=== PATIENT | female | born 1975 | race Caucasian/White ===

== ENCOUNTER → 2017-12-02 09:20 | Outpatient (CLI) | payer BC, SELFPAY ==
--- NOTE | 2017-12-02 09:28 | XR_ITS ---
XR hand LT min 3V HISTORY: Posttraumatic pain ITS.REASON: LT HAND PAIN, TRIPPED AT HOME ORDERING PHYSICIAN: Chiquita Walker PATIENT AGE: 42 years COMPARISON: None FINDINGS: No fracture or dislocation. No lytic or blastic change. There is normal mineralization.. The joint spaces are well-preserved. No significant degenerative/arthritic changes. No erosive changes evident.. IMPRESSION: Negative, no acute finding
== END ==
PROVIDERS: PCP Family Medicine; Visit Provider Nurse Practitioner Family
DX: M79.642 Pain in left hand (principal)
CPT/HCPCS: 73130

== ENCOUNTER → 2019-12-28 13:42 | Outpatient (CLI) | payer MEDICAID, SELFPAY ==
--- NOTE | 2019-12-28 13:52 | XR_ITS ---
PROCEDURE: XR SACRUM COCCYX MIN 2V CLINICAL INDICATION: Pain following injury COMPARISON: No exams were available for comparison FINDINGS: There is and inverted v-shaped lucency involving the sacrococcygeal junction which could be due to a nondisplaced fracture. Tip of the coccyx is slightly angulated posteriorly. IMPRESSION: Possible nondisplaced fracture of the sacrococcygeal junction. Dictated by: Alexander Thomas MD 12/28/2019 15:00 Alexander Thomas MD in [place] 12/28/2019 15:00
--- NOTE | 2019-12-28 13:52 | XR_ITS ---
PROCEDURE: XR PELVIS 1-2V CLINICAL INDICATION: INJURY OF COCCYX,RT SIDED ISCHIAL PAIN Pain COMPARISON: No exams were available for comparison TECHNIQUE: XR Pelvis AP View FINDINGS: No fracture or dislocation is evident. No significant degenerative change. No lytic or blastic change. IMPRESSION: No acute findings. Dictated by: Alexander Thomas MD 12/28/2019 15:02 Alexander Thomas MD in [place] 12/28/2019 15:02
== END ==
PROVIDERS: PCP Family Medicine; Visit Provider Family Medicine
DX: S39.92XA Unspecified injury of lower back, initial encounter (principal); M46.1 Sacroiliitis, not elsewhere classified; M25.551 Pain in right hip
CPT/HCPCS: 72170; 72220

== ENCOUNTER 2024-07-24 17:03 | Emergency (ER) | payer BC, SELFPAY ==
--- NOTE | 2024-07-24 17:13 | ED_ITS ---
<Statement entered by Jase Lepe MD - 07/24/24 21:52> I was consulted by the YA, and we discussed the complexity of the problems being addressed. I approved the treatment and management plan for this patient's care in the emergency department, thus performing a substantive portion of the medical decision making. Jase Lepe MD, GRAHAM, FACEP Discharge Plan Disposition Patient Disposition: Home, Self-Care Condition: Good Referrals Follow up/Referrals: Provider,Referral, [Primary Care Provider] - See instructions Activity Restrictions/Add. Instructions Additional Instructions/Restrictions: Recommend RICE, rest ice compression elevation along with Tylenol alternating with Motrin for pain and swelling. If you have to sit for prolonged period I recommend elevating your foot. If you have continued new or worsening signs or symptoms follow-up with your PCP or return to the ER as needed. Clinical Impressions Clinical Impression: Hematoma of right foot Print Language Print Language: Serbian Discharge ED Provider: Jase Lepe General Adult HPI General Chief complaint: Extremity Injury, Lower Stated complaint: AO 07/23/24 2000 Injury right foot Time Seen by Provider: 07/24/24 17:13 History of Present Illness HPI narrative: Patient presents for right foot injury. Patient dropped a metal freestanding close rack on the dorsum of her right foot last night. She states that it immediately swelled. Patient treated it with elevation and ice all night and has been able to ambulate on it today however it has become more painful so she presented for evaluation. She denies any loss of motor or sensory numbness or tingling. Related Data Allergies Allergy/AdvReac Type Severity Reaction Status Date / Time No Known Allergies Allergy Verified 07/24/24 17:34 [facility] Disclaimer: The information contained in this section may have been updated after the patient was seen, as this information can be updated by other users. Social History Smoking Status: Former smoker alcohol intake: never current occupational status: employed Travel in the last 8 weeks?: None ROS Obtained: Yes Systems reviewed as appropriate & no additional complaints except as documented Physical Exam General General appearance: alert and in no apparent distress Respiratory Respiratory exam: Present normal lung sounds bilaterally Cardiovascular Cardiovascular exam: Present regular rate Neurological Exam Neurological exam: Present alert and oriented X3 Medical Decision Making Medical Records Medical records reviewed: Yes I reviewed the patient's medical records. Screening: Per USPSTF and CDC recommendations, given the prevalence of disease in our region, it is our hospital?s policy to screen for HIV and viral Hepatitis for all patients aged 18 and over and those with ongoing risk factors. Judah Inquiry Pt receiving controlled substance: No Vital Signs: 07/24/24 17:24 07/24/24 17:31 07/24/24 18:20 Temperature 98.3 F 98.0 F Temperature Source Oral Pulse Rate 104 H 98 H Pulse Rate [Left] 101 H Respiratory Rate 16 19 Blood Pressure 176/104 H 183/109 H Blood Pressure [Right Arm] 191/104 H Blood Pressure Mean [Right Arm] 133 Blood Pressure Source [Right Arm] Automatic Cuff Blood Pressure Position [Right Arm] Sitting 02 Sat by Pulse Oximetry 99 100 Oxygen Delivery Method Room Air Room Air Lab Data Lab results reviewed: Yes I reviewed the patient's lab results. Orders (Tests/Meds): ED MEDICATIONS Discontinued Medications Generic Name Dose Route Start Last Admin Trade Name Freq PRN Reason Stop Dose Admin Acetaminophen 1,000 mg 07/24/24 17:57 07/24/24 18:07 Acetaminophen 500mg Tab PO 07/24/24 17:58 1,000 mg ONCE ONE Administration Ibuprofen 800 mg 07/24/24 17:57 07/24/24 18:07 Ibuprofen 400 Mg Tablet PO 07/24/24 17:58 800 mg ONCE ONE Administration Oxycodone HCl 5 mg 07/24/24 17:57 07/24/24 18:06 Oxycodone 5mg Immediate Release Tablet PO 07/24/24 17:58 5 mg ONCE ONE Administration ORDERS Category Date Time Status Foot XR right minimum 3 views [XR foot RT min 3V] Stat Exams 07/24/24 17:17 Completed Medical Decision Narrative: In summary patient is a 49-year-old female who presents to the emergency department for evaluation of hematoma of her right foot. Patient is hypertensive on arrival with a blood pressure 191/104 tachycardic at 101 sinus tachycardia the bedside monitor breathing 16 times a minute satting at 99% on room air afebrile. Zickel exam is remarkable for ecchymosis to the dorsum of the right foot however I do not palpate any bony abnormalities. Patient does have full range of motion and is neurovascular intact distally she has positive DP and PT pulses. Patient did show me swelling last night and it is markedly b lee but still there is a small area of hematoma on the dorsum of the midfoot.. Differential diagnosis includes hematoma versus fracture. Initial workup will be conducted with plain film x-rays. Initial interventions include Tylenol ibuprofen and oxycodone. Initial workup reviewed by me and my informal to rotation prior to radiology read shows right midfoot soft tissue swelling but no acute bony abnormality. Please see radiology read for formal final interpretation.. Upon repeat evaluation patient reports significant improvement after Tylenol ibuprofen and oxycodone. She is able to bear weight in the ER. Given this patient is appropriate for discharge with recommendations for local and supportive care including RICE along with Tylenol alternating with Motrin. If she has any continued new or worsening signs or symptoms follow-up PCP return to the ER as needed. Critical Care Critical Care Time Critical Care Time: No
--- NOTE | 2024-07-24 17:17 | XR_ITS ---
PROCEDURE INFORMATION: Exam: XR Right Foot Exam date and time: 07/24/2024 5:20 PM Age: 49 years old Clinical indication: Injury or trauma; Other: Object fall on foot; Blunt trauma; Right; Additional info: Dropped a heavy metal close rack on it TECHNIQUE: Imaging protocol: Radiologic exam of the right foot. Views: 3 or more views. COMPARISON: No relevant prior studies available. FINDINGS: Bones/joints: Healed 5th metatarsal fracture. Soft tissues: Mild right midfoot soft tissue swelling without acute osseous abnormality. IMPRESSION: Mild right midfoot soft tissue swelling without acute osseous abnormality.
[2024-07-24 17:24] VITALS: BP 191/104; PULSE 101; RESP 16; TEMP 36.8; O2SAT 99; BMI 22.1
[2024-07-24 17:31] VITALS: BP 176/104; PULSE 104; O2SAT 100
--- NOTE | 2024-07-24 17:57 | PC.NURSE ---
RN aware of elevated BP at this time.
[2024-07-24] MEDS: OXYCODONE 5MG IMMEDIATE RELEASE TABLET 5 MG PO (18:06)
[2024-07-24] MEDS: IBUPROFEN 400 MG TABLET 800 MG PO (18:07)
[2024-07-24] MEDS: ACETAMINOPHEN 500MG TAB 1000 MG PO (18:07)
[2024-07-24 18:20] VITALS: BP 183/109; PULSE 98; RESP 19; TEMP 36.7; O2SAT 98
== END 2024-07-24 18:21 | disposition home or self-care (01) ==
PROVIDERS: Emergency Provider Student in an Organized Health Care Education/Training Program
DX: S90.31XA Contusion of right foot, initial encounter (principal); M79.671 Pain in right foot; W20.8XXA Other cause of strike by thrown, projected or falling object, initial encounter
CPT/HCPCS: 73630; 99283

== ENCOUNTER 2024-08-05 12:13 | Emergency (ER) | payer BC, OTHER, SELFPAY ==
[2024-08-05] VITALS (18 sets, daily range): BP systolic 149–190; BP diastolic 100–124; PULSE 92–126; RESP 7–17; TEMP 36.9; O2SAT 97–100; BMI 219.6
--- NOTE | 2024-08-05 12:03 | ECG_ITS ---
APPROVED REPORT Exam: Resting ECG HR:117 bpm ECG Measurements Heart Rate 117 AXES [place] 158 P 68 QRSd 90 QRS 87 QT 339 T 47 QTc 409 Conclusion SINUS TACHYCARDIA NONSPECIFIC T-WAVE ABNORMALITY ABNORMAL RHYTHM ECG UNCONFIRMED REPORT Electronically signed by : Art Morfin, 08/05/2024 16:19:58
--- NOTE | 2024-08-05 12:04 | CT_ITS ---
FINAL REPORT TECHNIQUE: Axial CT images were performed through the head. Coronal reformatted images were submitted. This study was performed with techniques to keep radiation doses as low as reasonably achievable (ALARA). Individualized dose reduction techniques using automated exposure control or adjustment of mA and/or kV according to the patient's size were employed. CLINICAL HISTORY: seizure FINDINGS: The ventricles are normal in size. There is no evidence of hemorrhage. There is no mass or edema identified. There is no abnormal extra-axial fluid seen. The sinuses are well aerated. The mastoid air cells are well aerated. IMPRESSION: No acute intracranial process. Reviewed, Interpreted and Dictated by Anoop Mckenna MD Transcribed by Ryann Ndiaye Authenticated and [facility]
[2024-08-05 12:08] LABS: VBG Base Excess -13.5 mmol/L (-2.4-2.3); VBG HCO3 13.3 mmol/L (23-30); VBG Oxygen Saturation 98.4 % (50-70); VBG PCO2 29.3 mmol/L (35-51); VBG PH 7.28 mmol/L (7.31-7.41); VBG PO2 129.5 mmol/L (28-40); VBG Total CO2 14.2 mmol/L (23-27)
[2024-08-05 12:11] LABS: Lactate Venous 12.1 mmol/L (0.4-2.0)
--- NOTE | 2024-08-05 12:12 | PC.NURSE ---
Dr Morfin notified of critical vbg/lactic
[2024-08-05 12:13] LABS: Basophils % 0.5 % (0.1-2.0); Eosinophils % 0.2 % (0.1-12.0); Hematocrit 45.1 % (37.0-47.0); Hemoglobin 14.6 g/dL (12.2-16.2); Immature Granulocytes # 0.02 10^3uL; Immature Granulocytes % 0.3 %; Lymphocytes # 2.7 K/mm3 (0.7-4.5); Lymphocytes % 40.9 % (10-50); Mean Corpuscular HGB Conc 32.4 g/dL (31.8-35.4); Mean Corpuscular Volume 104.9 fl (81-99); Mean Platelet Volume 11.2 fl (7.4-10.4); Monocytes # 0.4 K/mm3 (0.1-1.0); Neutrophils # 3.4 K/mm3 (1.8-7.8); Neutrophils % 52.1 % (37.0-80.0); Nucleated Red Blood Cells # 0 10^3/uL; Nucleated Red Blood Cells % 0 %; Platelet Count 218 K/mm3 (142-424); Red Cell Distribution Width 12.1 % (11.5-17.5); White Blood Count 6.5 K/mm3 (4.8-10.8)
[2024-08-05 12:17] LABS: Chloride 99 mmol/L (98-107); Sodium 138 mmol/L (136-145)
--- NOTE | 2024-08-05 12:17 | ED_ITS ---
<Statement entered by Art Morfin MD - 08/28/24 11:22> YA Attestation I was consulted by the YA, and we discussed the complexity of problems being addressed. I approved the treatment and management plan for this patient's care in the emergency department, thus performing a substantial portion of the medical decision making. Art Morfin MD Discharge Plan Disposition Patient Disposition: Xfer Short-Term Hosp Condition: Good Prescriptions Prescriptions: No Action diazepam 5 mg tablet 5 mg PO DAILY escitalopram oxalate 10 mg tablet 10 mg PO DAILY Patient Comments: TAKE 1 TABLET BY MOUTH DAILY vitamin B complex Tablet 1 tab PO DAILY [id number] acid-biotin 200-300 mcg tablet,chewable 2 tab PO DAILY metoprolol succinate 50 mg tablet extended release 24 hr 50 mg PO DAILY Qty: 30 2RF amoxicillin 875 mg tablet 875 mg PO BID 10 Days Qty: 20 0RF Referrals Follow up/Referrals: Provider,Referral, [Primary Care Provider] - See instructions Clinical Impressions Clinical Impression: Seizure Stand Alone Forms Stand Alone Forms: Transfer Record - ED Instructions Patient Instructions: DI for Seizure Disorder -- Adult Print Language Print Language: [place] Discharge ED Provider: Art Morfin General Adult HPI <Danielatr Payanlizzeth ([facility]), SKILLED LABOR - Last Filed: 08/05/24 18:40> General Chief complaint: Seizure Stated complaint: seizure Time Seen by Provider: 08/05/24 12:14 Mode of Arrival: EMS Source of Information: Patient and EMS Description of Symptoms (Recalled from ER Triage Doc. by RN): ems states they were called out for a witnessed seizure. coworkers state patient was sitting in chair working when she became stiff, they lowered her to floor she reports biting tongue, they report this lasted for 5 mins. on ems arrival she was postlyctial and confused reports feeling swimmy headed and headache History of Present Illness HPI narrative: 49-year-old female presents EMS status post witnessed seizure. Patient states she was at work was feeling fine woke up to EMS. Per bystanders patient was sitting and she suddenly stiffened and started to seize that lasted about 5 minutes. Patient reports no history of seizures. Patient states now she is having a headache and feeling swimmy headed. With talking with patient she admits to drinking vodka and lemonade 3 to 4 glasses daily and taking a shot of vodka before going to work. Patient states she has noticed over the last 4 days her blood pressure has been elevated. Related Data Home Medications ?Medication ?Instructions ?Recorded ?Confirmed diazepam 5 mg tablet 5 mg PO DAILY 08/18/2408/18 escitalopram oxalate 10 mg tablet 10 mg PO DAILY 08/1808/18/24 multivit with minerals-folic acid 2 tab PO DAILY 08/1808/18/24 200 mcg-biotin 300 mcg chew tablet vitamin B complex 1 tab PO DAILY 08/18/2407/24 Previous Rx's ?Medication ?Instructions ?Recorded amoxicillin 875 mg tablet 875 mg PO BID 10 days #20 ta bs 08/18/24 metoprolol succinate 50 mg 50 mg PO DAILY #30 tabs tablet,extended release 24 hr Allergies Allergy/AdvReac Type Severity Reaction Status Date / Time No Known Allergies Allergy Verified 08/18/24 08:41 PFS <Kunal Dudley ([facility]), SKILLED LABOR - Last Filed: 08/05/24 18:40> [facility] Disclaimer: The information contained in this section may have been updated after the patient was seen, as this information can be updated by other users. Medical History (Updated 08/18/24 @ 13:04 by Julia Braswell APRN) Depression Surgical History (Updated 08/18/24 @ 08:46 by Simin Najera CMA) History of tonsillectomy H/O total hysterectomy Family History (Updated 08/18/24 @ 08:47 by Simin Najera CMA) Family/Other Diabetes Mother Thyroid disorder Hypertension Rheumatoid arthritis Social History (Updated 08/18/24 @ 08:48 by Smiin Najera CMA) Smoking Status: Light tobacco smoker tobacco type: cigarettes alcohol intake: former year quit: 2024 substance use type: denies use current occupational status: employed Travel in the last 8 weeks?: None Have you lived/traveled outside US in past 30 days?: No Contact w/someone who lives/traveled outside US past 30 days?: No Exposure to someone with infectious disease in past 14 days?: No Do you have a fever (greater than 100.4 F or 38 C)?: No Have you tested positive for COVID-19?: No Exposed to someone with COVID-19 in past 14 days?: No Do you have a sore throat?: No Do you have a cough?: No Do you have any weakness?: No Do you have any diarrhea?: No Are you experiencing any unusual bleeding?: No Do you have any muscle aches/pain?: No Do you have any abdominal pain?: No Are you experiencing loss of taste or smell?: No <Kunal Dudley ([facility]), SKILLED LABOR - Last Filed: 08/05/24 18:40> ROS Obtained: Yes Systems reviewed as appropriate & no additional complaints except as documented Physical Exam <Kunal Dudley ([facility]), SKILLED LABOR - Last Filed: 08/05/24 18:40> General General appearance: alert and in no apparent distress Head Head exam: atraumatic, normocephalic and normal inspection Eye Eye exam: Present normal appearance and PERRL ENT ENT exam: Present normal exam, normal oropharynx, mucous membranes moist, TM's normal bilaterally and normal external ear exam Neck Neck exam: Present normal inspection, full ROM and trachea midline; Absent meningismus or lymphadenopathy Chest Chest inspection: Present normal inspection and symmetric chest wall rise; Absent tenderness Respiratory Respiratory exam: Present normal lung sounds bilaterally; Absent respiratory distress Cardiovascular Cardiovascular exam: Present regular rate and normal rhythm; Absent JVD Abdominal Exam Abdominal exam: Present soft and normal bowel sounds; Absent distention, tenderness or guarding Extremities Exam Extremities exam: Present normal inspection, full ROM and normal capillary refill; Absent calf tenderness Back Exam Back exam: Present normal inspection; Absent tenderness Neurological Exam Neurological exam: Present alert and oriented X3 Psychiatric Psychiatric exam: Present normal affect and normal mood Skin Skin exam: Present warm, dry, intact and normal color Lymphatic Lymphatic Findings: no adenopathy Medical Decision Making <Kunal Dudley ([facility]), SKILLED LABOR - Last Filed: 08/05/24 18:40> Medical Records Medical records reviewed: Yes I reviewed the patient's medical records. Screening: Per USPSTF and CDC recommendations, given the prevalence of disease in our region, it is our hospital?s policy to screen for HIV and viral Hepatitis for all patients aged 18 and over and those with ongoing risk factors. Judah Inquiry Pt receiving controlled substance: No Vital Signs: 08/05/24 12:05 08/05/24 12:30 08/05/24 13:30 Temperature 98.5 F Temperature Source Oral Pulse Rate 105 H Pulse Rate [Right Radial] 124 H Respiratory Rate 16 11 L 15 Blood Pressure 172/106 H 181/117 H Blood Pressure [Right Arm] 174/110 H Blood Pressure Mean [Right Arm] 131 Blood Pressure Source Blood Pressure Source [Right Arm] Automatic Cuff Blood Pressure Position Blood Pressure Position [Right Arm] Supine 02 Sat by Pulse Oximetry 98 98 99 Oxygen Delivery Method Room Air Room Air 08/05/24 13:32 08/05/24 14:10 08/05/24 14:30 Temperature Temperature Source Pulse Rate 104 H Pulse Rate [Right Radial] Respiratory Rate 15 13 13 Blood Pressure 167/100 H 169/111 H 160/108 H Blood Pressure [Right Arm] Blood Pressure Mean [Right Arm] Blood Pressure Source Blood Pressure Source [Right Arm] Blood Pressure Position Blood Pressure Position [Right Arm] 02 Sat by Pulse Oximetry 99 98 97 Oxygen Delivery Method Room Air Room Air Room Air 08/05/24 15:00 08/05/24 15:22 08/05/24 15:30 Temperature Temperature Source Pulse Rate 124 H 126 H 116 H Pulse Rate [Right Radial] Respiratory Rate 13 14 7 L Blood Pressure 190/120 H 168/122 H 155/112 H Blood Pressure [Right Arm] Blood Pressure Mean [Right Arm] Blood Pressure Source Blood Pressure Source [Right Arm] Blood Pressure Position Blood Pressure Position [Right Arm] 02 Sat by Pulse Oximetry 99 100 98 Oxygen Delivery Method Room Air Room Air Room Air 08/05/24 16:00 08/05/24 16:30 08/05/24 17:00 Temperature Temperature Source Pulse Rate 114 H 104 H 100 H Pulse Rate [Right Radial] Respiratory Rate 11 L 14 15 Blood Pressure 178/124 H 168/117 H 159/116 H Blood Pressure [Right Arm] Blood Pressure Mean [Right Arm] Blood Pressure Source Blood Pressure Source [Right Arm] Blood Pressure Position Blood Pressure Position [Right Arm] 02 Sat by Pulse Oximetry 97 98 99 Oxygen Delivery Method Room Air Room Air Room Air 08/05/24 17:15 08/05/24 18:00 08/05/24 18:30 Temperature Temperature Source Pulse Rate 102 H 108 H 92 H Pulse Rate [Right Radial] Respiratory Rate 14 12 17 Blood Pressure 149/119 H 152/114 H 176/119 H Blood Pressure [Right Arm] Blood Pressure Mean [Right Arm] Blood Pressure Source Blood Pressure Source [Right Arm] Blood Pressure Position Blood Pressure Position [Right Arm] 02 Sat by Pulse Oximetry 99 99 98 Oxygen Delivery Method Room Air Room Air Room Air 08/05/24 19:00 08/05/24 19:22 08/05/24 19:30 Temperature 98.5 F Temperature Source Oral Pulse Rate 103 H 106 H Pulse Rate [Right Radial] Respiratory Rate 9 L 15 10 L Blood Pressure 163/116 H 163/116 H 172/120 H Blood Pressure [Right Arm] Blood Pressure Mean [Right Arm] Blood Pressure Source Automatic Cuff Blood Pressure Source [Right Arm] Blood Pressure Position Supine Blood Pressure Position [Right Arm] 02 Sat by Pulse Oximetry 99 Oxygen Delivery Method Room Air Lab Data Lab results reviewed: Yes I reviewed the patient's lab results. Lab Results 08/05/24 11:50: WBC 6.5, RBC 4.30, Hgb 14.6, Hct 45.1, MCV 104.9 H, MCH 34.0 H, MCHC 32.4, RDW 12.1, Plt Count 218, MPV 11.2 H, Neut % (Auto) 52.1, Lymph % (Auto) 40.9, [place] % (Auto) 6.0, Eos % (Auto) 0.2, Baso % (Auto) 0.5, Neut # (Auto) 3.4, Lymph # (Auto) 2.7, [place] # (Auto) 0.4, Eos # (Auto) 0.0, Baso # (Auto) 0.0, PT 9.8 L, INR 0.86 L, APTT 24.5, Sodium 138, Potassium 3.0 L, Chloride 99, Carbon Dioxide 10 L, Anion Gap 32.0 H, BUN 5 L, Creatinine 0.70, Estimated Creat Clear 77, Estimated GFR 89, Est GFR ( Amer) 108, Glucose 130 H, Hemoglobin A1c 5.1, Calcium 9.7, Phosphorus 4.0, Magnesium 2.3, Total Bilirubin 1.0, AST 356 H*, ALT 121 H, Alkaline Phosphatase 109, Troponin I < 0.01, Total Protein 8.7 H, Albumin > 6.0 H, Globulin 2.7, Albumin/Globulin Ratio 2.2 H, TSH 0.52, Plasma/Serum Alcohol 32 H, HCV Ab ELIU w/Rflx PCR Qn Negative, HIV Ag/Ab Combo Qual Negative 08/05/24 12:10: VBG pH 7.28 L, VBG pCO2 29.3 L, VBG pO2 129.5 H, VBG HCO3 13.3 L , VBG Total CO2 14.2 L, VBG O2 Saturation 98.4 H, VBG Base Excess -13.5 L, VBG Lactic Acid 12.1 H 08/05/24 12:22: Urine Opiates Screen Positive H, Urine Methadone Screen Negative, Ur Barbituates Screen Negative, Ur Phencyclidine Scrn Negative, Ur Amphetamines Screen Negative, U Benzodiazepines Scrn Negative, Urine Cocaine Screen Negative, U Marijuana (THC) Screen Negative 08/05/24 15:07: Troponin I < 0.01 08/05/24 17:55: Lactate 0.6 L 08/05/24 11:50 08/05/24 11:50 Orders (Tests/Meds): ED MEDICATIONS Discontinued Medications Generic Name Dose Route Start Last Admin Trade Name Freq PRN Reason Stop Dose Admin Acetaminophen 1,000 mg 08/05/24 19:27 08/05/24 19:51 Acetaminophen 1,000mg/100ml Vial IV 08/05/24 19:28 1,000 mg ONCE ONE Administration Diazepam 10 mg 08/05/24 16:39 Diazepam 10mg/2ml Syringe IV 09/04/24 16:38 Q1HP PRN CIWA >16 Diazepam 5 mg 08/05/24 16:39 08/05/24 16:55 Diazepam 5mg Tablet PO 09/04/24 16:38 5 mg Q1HP PRN Administration CIWA Score 8-15 Diazepam 5 mg 08/05/24 16:39 Diazepam 5mg Tablet PO 09/04/24 16:38 Q6HP PRN CIWA 2-7 Potassium Chloride/Water 100 mls @ 50 mls/hr 08/05/24 12:43 08/05/24 13:21 Potassium Chloride 20meq/100ml Ivpb IV 08/05/24 14:42 50 mls/hr ONCE ONE Administration Sodium Chloride 1,000 mls @ 999 mls/hr 08/05/24 13:33 08/05/24 13:34 Sod Chlor 0.9% 1000ml Bag IV 08/05/24 14:33 999 mls/hr .Q1H1M ONE Administration Sodium Chloride 1,000 mls @ 999 mls/hr 08/05/24 15:54 08/05/24 16:00 Sod Chlor 0.9% 1000ml Bag IV 08/05/24 16:54 999 mls/hr .Q1H1M ONE Administration Iopamidol 70 ml 08/05/24 13:20 08/05/24 13:21 Iopamidol-370 (76%);100ml Bottle IV 08/05/24 13:21 70 ml ONCE ONE Administration Ketorolac Tromethamine 15 mg 08/05/24 19:27 08/05/24 19:51 Ketorolac 30mg/Ml Vial IV 08/05/24 19:28 15 mg ONCE ONE Administration Potassium Chloride 40 meq 08/05/24 12:38 08/05/24 13:20 Potassium Chloride 20meq Tab PO 08/05/24 12:39 40 meq ONCE ONE Administration Sodium Chloride 50 ml 08/05/24 13:20 08/05/24 13:21 0.9 % Sodium Chloride 50 Ml Vial IV 08/05/24 13:21 50 ml ONCE ONE Administration Sodium Chloride 10 ml 08/05/24 13:20 08/05/24 13:21 Sodium Chloride 0.9% 10ml Syr (Rad Only) IV 09/04/24 13:19 10 ml NEEDED PRN Administration Maintain IV Site ORDERS Category Date Time Status CT angio chest PE protocol Stat Cat Scan 08/05/24 12:[address] head/brain wo con Stat Cat Scan 08/05/24 12:04 Completed Consult Code Inspector [CONS] Routine Cons 08/05/24 15:06 Active Activated Partial Thrombo Time Routine Lab 08/05/24 11:50 Completed Blood alcohol [Ethyl Alcohol] Stat Lab 08/05/24 11:50 Completed CBC w/Auto Diff [Complete Blood Count Auto Diff] Stat Lab 08/05/24 11:50 Completed CMP [Comprehensive Metabolic Panel] Stat Lab 08/05/24 11:50 Completed HIV Combo Stat Lab 08/05/24 11:50 Completed Hemoglobin A1C Stat Lab 08/05/24 11:50 Completed Hepatitis C Ab Qual. W/ RFX Stat Lab 08/05/24 11:50 Completed Lactic Acid Follow Up (RFLX 1) Stat Lab 08/05/24 17:55 Completed Magnesium Stat Lab 08/05/24 11:50 Completed Phosphorous Stat Lab 08/05/24 11:50 Completed Prothrombin Time INR Routine Lab 08/05/24 11:50 Completed TSH [Thyroid Stimulating Hormone] Stat Lab 08/05/24 11:50 Completed Trop I [Troponin I] Stat Lab 08/05/24 11:50 Completed Troponin I Q3H Lab 08/05/24 15:07 Completed UDS [Drug Screen,Urine] Stat Lab 08/05/24 12:22 Completed VBG [Venous Blood Gas] Stat RT 08/05/24 12:10 Completed Medical Decision Narrative: In summary patient is a 49-year-old female who presents to the emergency department for evaluation of status post seizure. Patient is hemodynamically stable upon arrival, afebrile. Unremarkable physical exam. Differential diagnosis includes alcohol withdrawal, epilepsy, hypertension, PE, intracranial abnormality. Initial workup will be conducted with labs, CT head and chest, urine. Initial inventions include IV fluids. Initial workup reviewed by me CT head and chest negative, alcohol level 32, pH 7.28 lactic acid 12, repeat lactic acid 0.8 potassium 20meq of IV potassium given 40 p.o, CIWA protocol initiated, seizure protocol. Upon repeat evaluation patient resting comfortably in bed CIWA of 7. Given this patient is excepted to [facility] will transfer. Spoke with Dr. Lowery at 1600-discussed patient he would prefer patient be transferred to a facility that had neuro [address] Bennett at [facility] report given-she stated patient needed to go to the ICU and I would have to speak to the ICU attending [address] cronin report given she stated that patient needed to go to medicine and ICU and she will speak with Dr. Bennett and they will call us back. [address] Bennett accepted patient wants second lactic acid results. <Eli Stauffer, DO - Last Filed: 08/05/24 21:30> Vital Signs: 08/05/24 12:05 08/05/24 12:30 08/05/24 13:30 Temperature 98.5 F Temperature Source Oral Pulse Rate 105 H Pulse Rate [Right Radial] 124 H Respiratory Rate 16 11 L 15 Blood Pressure 172/106 H 181/117 H Blood Pressure [Right Arm] 174/110 H Blood Pressure Mean [Right Arm] 131 Blood Pressure Source Blood Pressure Source [Right Arm] Automatic Cuff Blood Pressure Position Blood Pressure Position [Right Arm] Supine 02 Sat by Pulse Oximetry 98 98 99 Oxygen Delivery Method Room Air Room Air 08/05/24 13:32 08/05/24 14:10 08/05/24 14:30 Temperature Temperature Source Pulse Rate 104 H Pulse Rate [Right Radial] Respiratory Rate 15 13 13 Blood Pressure 167/100 H 169/111 H 160/108 H Blood Pressure [Right Arm] Blood Pressure Mean [Right Arm] Blood Pressure Source Blood Pressure Source [Right Arm] Blood Pressure Position Blood Pressure Position [Right Arm] 02 Sat by Pulse Oximetry 99 98 97 Oxygen Delivery Method Room Air Room Air Room Air 08/05/24 15:00 08/05/24 15:22 08/05/24 15:30 Temperature Temperature Source Pulse Rate 124 H 126 H 116 H Pulse Rate [Right Radial] Respiratory Rate 13 14 7 L Blood Pressure 190/120 H 168/122 H 155/112 H Blood Pressure [Right Arm] Blood Pressure Mean [Right Arm] Blood Pressure Source Blood Pressure Source [Right Arm] Blood Pressure Position Blood Pressure Position [Right Arm] 02 Sat by Pulse Oximetry 99 100 98 Oxygen Delivery Method Room Air Room Air Room Air 08/05/24 16:00 08/05/24 16:30 08/05/24 17:00 Temperature Temperature Source Pulse Rate 114 H 104 H 100 H Pulse Rate [Right Radial] Respiratory Rate 11 L 14 15 Blood Pressure 178/124 H 168/117 H 159/116 H Blood Pressure [Right Arm] Blood Pressure Mean [Right Arm] Blood Pressure Source Blood Pressure Source [Right Arm] Blood Pressure Position Blood Pressure Position [Right Arm] 02 Sat by Pulse Oximetry 97 98 99 Oxygen Delivery Method Room Air Room Air Room Air 08/05/24 17:15 08/05/24 18:00 08/05/24 18:30 Temperature Temperature Source Pulse Rate 102 H 108 H 92 H Pulse Rate [Right Radial] Respiratory Rate 14 12 17 Blood Pressure 149/119 H 152/114 H 176/119 H Blood Pressure [Right Arm] Blood Pressure Mean [Right Arm] Blood Pressure Source Blood Pressure Source [Right Arm] Blood Pressure Position Blood Pressure Position [Right Arm] 02 Sat by Pulse Oximetry 99 99 98 Oxygen Delivery Method Room Air Room Air Room Air 08/05/24 19:00 08/05/24 19:22 08/05/24 19:30 Temperature 98.5 F Temperature Source Oral Pulse Rate 103 H 106 H Pulse Rate [Right Radial] Respiratory Rate 9 L 15 10 L Blood Pressure 163/116 H 163/116 H 172/120 H Blood Pressure [Right Arm] Blood Pressure Mean [Right Arm] Blood Pressure Source Automatic Cuff Blood Pressure Source [Right Arm] Blood Pressure Position Supine Blood Pressure Position [Right Arm] 02 Sat by Pulse Oximetry 99 Oxygen Delivery Method Room Air Lab Data Lab Results 08/05/24 11:50: WBC 6.5, RBC 4.30, Hgb 14.6, Hct 45.1, MCV 104.9 H, MCH 34.0 H, MCHC 32.4, RDW 12.1, Plt Count 218, MPV 11.2 H, Neut % (Auto) 52.1, Lymph % (Auto) 40.9, [place] % (Auto) 6.0, Eos % (Auto) 0.2, Baso % (Auto) 0.5, Neut # (Auto) 3.4, Lymph # (Auto) 2.7, [place] # (Auto) 0.4, Eos # (Auto) 0.0, Baso # (Auto) 0.0, PT 9.8 L, INR 0.86 L, APTT 24.5, Sodium 138, Potassium 3.0 L, Chloride 99, Carbon Dioxide 10 L, Anion Gap 32.0 H, BUN 5 L, Creatinine 0.70, Estimated Creat Clear 77, Estimated GFR 89, Est GFR ( Amer) 108, Glucose 130 H, Hemoglobin A1c 5.1, Calcium 9.7, Phosphorus 4.0, Magnesium 2.3, Total Bilirubin 1.0, AST 356 H*, ALT 121 H, Alkaline Phosphatase 109, Troponin I < 0.01, Total Protein 8.7 H, Albumin > 6.0 H, Globulin 2.7, Albumin/Globulin Ratio 2.2 H, TSH 0.52, Plasma/Serum Alcohol 32 H, HCV Ab ELIU w/Rflx PCR Qn Negative, HIV Ag/Ab Combo Qual Negative 08/05/24 12:10: VBG pH 7.28 L, VBG pCO2 29.3 L, VBG pO2 129.5 H, VBG HCO3 13.3 L , VBG Total CO2 14.2 L, VBG O2 Saturation 98.4 H, VBG Base Excess -13.5 L, VBG Lactic Acid 12.1 H 08/05/24 12:22: Urine Opiates Screen Positive H, Urine Methadone Screen Negative, Ur Barbituates Screen Negative, Ur Phencyclidine Scrn Negative, Ur Amphetamines Screen Negative, U Benzodiazepines Scrn Negative, Urine Cocaine Screen Negative, U Marijuana (THC) Screen Negative 08/05/24 15:07: Troponin I < 0.01 08/05/24 17:55: Lactate 0.6 L Orders (Tests/Meds): ED MEDICATIONS Discontinued Medications Generic Name Dose Route Start Last Admin Trade Name Freq PRN Reason Stop Dose Admin Acetaminophen 1,000 mg 08/05/24 19:27 08/05/24 19:51 Acetaminophen 1,000mg/100ml Vial IV 08/05/24 19:28 1,000 mg ONCE ONE Administration Diazepam 10 mg 08/05/24 16:39 Diazepam 10mg/2ml Syringe IV 09/04/24 16:38 Q1HP PRN CIWA >16 Diazepam 5 mg 08/05/24 16:39 08/05/24 16:55 Diazepam 5mg Tablet PO 09/04/24 16:38 5 mg Q1HP PRN Administration CIWA Score 8-15 Diazepam 5 mg 08/05/24 16:39 Diazepam 5mg Tablet PO 09/04/24 16:38 Q6HP PRN CIWA 2-7 Potassium Chloride/Water 100 mls @ 50 mls/hr 08/05/24 12:43 08/05/24 13:21 Potassium Chloride 20meq/100ml Ivpb IV 08/05/24 14:42 50 mls/hr ONCE ONE Administration Sodium Chloride 1,000 mls @ 999 mls/hr 08/05/24 13:33 08/05/24 13:34 Sod Chlor 0.9% 1000ml Bag IV 08/05/24 14:33 999 mls/hr .Q1H1M ONE Administration Sodium Chloride 1,000 mls @ 999 mls/hr 08/05/24 15:54 08/05/24 16:00 Sod Chlor 0.9% 1000ml Bag IV 08/05/24 16:54 999 mls/hr .Q1H1M ONE Administration Iopamidol 70 ml 08/05/24 13:20 08/05/24 13:21 Iopamidol-370 (76%);100ml Bottle IV 08/05/24 13:21 70 ml ONCE ONE Administration Ketorolac Tromethamine 15 mg 08/05/24 19:27 08/05/24 19:51 Ketorolac 30mg/Ml Vial IV 08/05/24 19:28 15 mg ONCE ONE Administration Potassium Chloride 40 meq 08/05/24 12:38 08/05/24 13:20 Potassium Chloride 20meq Tab PO 08/05/24 12:39 40 meq ONCE ONE Administration Sodium Chloride 50 ml 08/05/24 13:20 08/05/24 13:21 0.9 % Sodium Chloride 50 Ml Vial IV 08/05/24 13:21 50 ml ONCE ONE Administration Sodium Chloride 10 ml 08/05/24 13:20 08/05/24 13:21 Sodium Chloride 0.9% 10ml Syr (Rad Only) IV 09/04/24 13:19 10 ml NEEDED PRN Administration Maintain IV Site ORDERS Category Date Time Status CT angio chest PE protocol Stat Cat Scan 08/05/24 12:[address] head/brain wo con Stat Cat Scan 08/05/24 12:04 Completed Consult Code Inspector [CONS] Routine Cons 08/05/24 15:06 Active Activated Partial Thrombo Time Routine Lab 08/05/24 11:50 Completed Blood alcohol [Ethyl Alcohol] Stat Lab 08/05/24 11:50 Completed CBC w/Auto Diff [Complete Blood Count Auto Diff] Stat Lab 08/05/24 11:50 Completed CMP [Comprehensive Metabolic Panel] Stat Lab 08/05/24 11:50 Completed HIV Combo Stat Lab 08/05/24 11:50 Completed Hemoglobin A1C Stat Lab 08/05/24 11:50 Completed Hepatitis C Ab Qual. W/ RFX Stat Lab 08/05/24 11:50 Completed Lactic Acid Follow Up (RFLX 1) Stat Lab 08/05/24 17:55 Completed Magnesium Stat Lab 08/05/24 11:50 Completed Phosphorous Stat Lab 08/05/24 11:50 Completed Prothrombin Time INR Routine Lab 08/05/24 11:50 Completed TSH [Thyroid Stimulating Hormone] Stat Lab 08/05/24 11:50 Completed Trop I [Troponin I] Stat Lab 08/05/24 11:50 Completed Troponin I Q3H Lab 08/05/24 15:07 Completed UDS [Drug Screen,Urine] Stat Lab 08/05/24 12:22 Completed VBG [Venous Blood Gas] Stat RT 08/05/24 12:10 Completed Medical Decision Narrative: In summary patient is a 49-year-old female who presents to the emergency department for evaluation of status post seizure. Patient is hemodynamically stable upon arrival, afebrile. Unremarkable physical exam. Differential diagnosis includes alcohol withdrawal, epilepsy, hypertension, PE, intracranial abnormality. Initial workup will be conducted with labs, CT head and chest, urine. Initial inventions include IV fluids. Initial workup reviewed by me CT head and chest negative, alcohol level 32, pH 7.28 lactic acid 12, repeat lactic acid 0.8 potassium 20meq of IV potassium given 40 p.o, CIWA protocol initiated, seizure protocol. Upon repeat evaluation patient resting comfortably in bed CIWA of 7. Given this patient is excepted to [facility] will transfer. Spoke with Dr. Lowery at 1600-discussed patient he would prefer patient be transferred to a facility that had neuro [address] Bennett at [facility] report given-she stated patient needed to go to the ICU and I would have to speak to the ICU attending [address] cronin report given she stated that patient needed to go to medicine and ICU and she will speak with Dr. Bennett and they will call us back. [address] Bennett accepted patient wants second lactic acid results. DO Eh: I was consulted by the YA, and we discussed the complexity of the problems being addressed. I approved the treatment and management plan for this patient's care in the emergency department, thus performing a substantive portion of the medical decision making. Patient arrives with first-time seizure in the setting of daily alcohol abuse, unclear if this is an alcohol withdrawal seizure versus other cause of seizure. She did have increasing CIWA scores here, though initially very low. CT scans here were reassuring and normal independent interpretation did not demonstrate any large brain bleed or space- occupying lesion, no PE. Please radiology for final interpretation. Labs here demonstrated lactic acidosis which was improving on repeat assessment in the setting of seizure, elevated alcohol level, positive UDS for opiates. Patient hypokalemia. Anion gap elevated in the setting of lactic acidosis. AST greater than ALT consistent with alcoholic hepatitis. Ultimately, patient was accepted to [facility] for transfer for higher level of care with neurology. She remained stable here in the emergency department with no recurrence of seizure activity. EMS transport was arranged, and she was transferred in stable condition. Eli Stauffer DO Critical Care <Kunal Dudley ([facility]), [employer] - Last Filed: 08/05/24 18:40> Critical Care Time Critical Care Time: No <Eli Stauffer DO - Last Filed: 08/05/24 21:30> Critical Care Time Critical Care Time: Yes Attestation: On 08/05/24, the high probability of a clinically significant, sudden or life threatening deterioration of the following system(s) required my full and direct attention, intervention and personal management. The time I documented below is in addition to time spent performing reported procedures but includes the following listed in this critical care notation. Total Time Total Critical Care Time: 55
[2024-08-05 12:20] LABS: Alanine Aminotransferase 121 U/L (12-78); Alkaline Phosphatase 109 U/L (38-126); Aspartate Amino Transferase 356 U/L (14-36); Blood Urea Nitrogen 5 mg/dl (7-17); Creatinine Clearance Estimated 77 mL/min (50-200); Estimated Glomerular Filt Rate 89 ml/min (>60); GFR (African American) 108 ML/MIN (>60)
[2024-08-05 12:21] LABS: Calcium 9.7 mg/dl (8.4-10.2); Glucose 130 mg/dl (74-100); Magnesium 2.3 mg/dl (1.6-2.3); Total Protein,Serum 8.7 g/dl (6.3-8.2)
--- NOTE | 2024-08-05 12:24 | CT_ITS ---
FINAL REPORT TECHNIQUE: The patient was injected with IV contrast. Axial images were obtained through the chest in a PE protocol. 3-D reconstruction images were also performed. Individualized dose reduction techniques using automated exposure control or adjustment of the MA and/or KV according to patient's size were employed. CLINICAL HISTORY: tachy COMPARISON: None FINDINGS: Mediastinal vasculature is adequately opacified. No pulmonary artery filling defects are identified to suggest PE. There is no aortic dissection. There is no axillary adenopathy. There is no mediastinal adenopathy. A calcified left hilar lymph node is noted. The heart size is normal. There is no pericardial or pleural effusion. No suspicious infiltrate or nodule is identified. Limited images of the upper abdomen demonstrate moderate fatty infiltration of the liver. IMPRESSION: No pulmonary embolus or dissection. Reviewed, Interpreted and Dictated by Anoop Mckenna MD Transcribed by Keyona Mejia Authenticated and [facility]
[2024-08-05 12:29] LABS: Albumin Level > 6.0 g/dl (3.5-5.0); Albumin/Globulin Ratio 2.2 (1.1-1.8); Globulin 2.7 g/dL (1.3-3.2)
--- NOTE | 2024-08-05 12:30 | PC.NURSE ---
Cherelle from [facility] called critical on patient: K- 3 CO2-10
[2024-08-05 12:32] LABS: Carbon Dioxide 10 mmol/L (22.0-30.0)
--- NOTE | 2024-08-05 12:33 | PC.NURSE ---
DR Notified of criticals.
[2024-08-05 12:41] LABS: Activated Partial Thrombo Time 24.5 seconds (22.8-30.6); Ethyl Alcohol 32 mg/dl (0-10); INR 0.86 (0.9-1.1); Prothrombin Time 9.8 seconds (10.1-12.5); Troponin I < 0.01 ng/ml (0.00-0.034)
--- NOTE | 2024-08-05 12:43 | PC.NURSE ---
pt requested warm blanket and water. Warm blanket given puneet Carlos asked if pt could have water, she said pt okay to have a couple ice chips. Ice chips given to pt.
[2024-08-05 13:07] LABS: Amphetamine/Metha Screen,Urine Negative ng/ml (<1000); Barbiturates Screen,Urine Negative ng/ml (<200)
[2024-08-05 13:08] LABS: Benzodiazepines Screen,Urine Negative ng/ml (<200)
[2024-08-05 13:09] LABS: Methadone Screen,Urine Negative ng/ml (<300)
[2024-08-05 13:10] LABS: Cannabinoid Screen,Urine Negative ng/ml (<50); Cocaine Screen,Urine Negative ng/ml (<300)
[2024-08-05 13:11] LABS: Opiate Screen,Urine Positive ng/ml (<300)
[2024-08-05 13:12] LABS: Phencyclidine Screen,Urine Negative ng/ml (<25)
[2024-08-05] MEDS: POTASSIUM CHLORIDE 20MEQ TAB 40 MEQ PO (13:20)
[2024-08-05 13:21] LABS: Thyroid Stimulating Hormone 0.52 uIU/mL (0.465-4.68)
[2024-08-05] MEDS: SODIUM CHLORIDE 0.9% 10ML SYR (RAD ONLY) 10 ML IV (13:21)
[2024-08-05] MEDS: 0.9 % SODIUM CHLORIDE 50 ML VIAL IV (13:21)
[2024-08-05] MEDS: IOPAMIDOL-370 (76%);100ML BOTTLE 70 ML IV (13:21)
[2024-08-05] MEDS: KCl 20mEq/100ml 100 ML 50 MEQ IV (13:21)
--- NOTE | 2024-08-05 13:30 | PC.NURSE ---
rounding on patient at this time she reports feeling more anxious, provider notified at this time. no new orders
[2024-08-05] MEDS: 0.9 % SODIUM CHLORIDE 1000ML 1,000 ML 999 ML IV ×2 (13:34→16:00)
[2024-08-05 14:16] LABS: HIV Combo NEGATIVE (Negative)
[2024-08-05 14:23] LABS: Hepatitis C Ab Qual. W/ RFX NEGATIVE (Negative)
--- NOTE | 2024-08-05 14:58 | PC.NURSE ---
Assisted pt to the bathroom to eliminate. Pt is laying back in bed with side rails up, seizure pads, and call light within reach.
--- NOTE | 2024-08-05 15:13 | PC.NURSE ---
patient now states she drinks 3-4 glasses of vodka daily and has for years
--- NOTE | 2024-08-05 15:21 | PC.NURSE ---
calling [facility] at this time.
[2024-08-05 15:46] LABS: Troponin I < 0.01 ng/ml (0.00-0.034)
--- NOTE | 2024-08-05 15:49 | PC.NURSE ---
[facility]
--- NOTE | 2024-08-05 15:51 | PC.NURSE ---
last drink this morning was a shot of vodka stated by patient
[2024-08-05 16:10] LABS: Reflex Lactic Add Lactic Reflex
--- NOTE | 2024-08-05 16:39 | PC.NURSE ---
Assisted patient to bathroom
[2024-08-05 16:45] LABS: Hemoglobin A1C 5.1 % (4.0-6.0)
[2024-08-05] MEDS: diazePAM 5MG TABLET 5 MG PO (16:55)
--- NOTE | 2024-08-05 17:00 | PC.NURSE ---
calling [facility] for update
--- NOTE | 2024-08-05 17:35 | PC.NURSE ---
Tyrell Dudley aprn s/w [facility].
[2024-08-05 18:33] LABS: Lactic Acid Follow Up (RFLX 1) 0.6 mmol/L (0.7-2.1)
--- NOTE | 2024-08-05 18:43 | PC.NURSE ---
Cynthia Munoz is currently on phone with [facility] to update accepting physician about lactic results.
[2024-08-05] MEDS: ACETAMINOPHEN 1,000MG/100ML VIAL 1000 MG IV (19:51)
[2024-08-05] MEDS: KETOROLAC 30MG/ML VIAL 15 MG IV (19:51)
--- NOTE | 2024-08-07 13:59 | PEERSUPPORT ---
Peer Support Note Patient Information Patient Information: DOS: 08/05/2024 ? Reason: ETOH, AUD ? Ps ED Consult ? Building Rapport: Previous Treatment: None ? Support System: Mother ? Current Stressors: -Seizure ;processing thoughts and emotions -Started a new job ? Motivation for Change: Pt admitted she has been dishonest with family, and she did not realize the affects the alcohol was having on her. She is interested in outpatient once she is medically stable. She is open to education on alcohol use disorder, and available treatments. ? Ps shared personal experience emphasizing the process leading up to no longer having control of a chemical and or substance encouraging hope and strength to the process of recovery for overall health. ? Pt receptive to ps, understanding and agreeing for follow up contacts for recovery focused support. ? Potential Barriers: -Lack of connection to recovery -Access to alcohol in home ? Harm Reduction: -Connection to [facility] Peer support -Education on Alcohol Use Disorder -Awareness to treatment available -Awareness to alcohol detox, withdrawal symptoms/timeline -Treatment referrals/Resource Meetings Local ? Recovery Plan in action: -Focus on Detox/withdrawal management medical setting for safety. -Healthy communication with family and friends -Self-Educate on Alcohol Use disorder -Refrain from drinking alcohol -Consider outpatient treatment following detox/stabilization
== END 2024-08-05 20:43 | disposition short-term general hospital (02) ==
PROVIDERS: Nurse Practitioner Family; Emergency Provider Student in an Organized Health Care Education/Training Program
DX: G40.001 Localization-related (focal) (partial) idiopathic epilepsy and epileptic syndromes with seizures of localized onset, not intractable, with status epilepticus (principal)
CPT/HCPCS: 70450; 71275; 80053; 80307; 80320; 82803; 83036; 83605; 83735; 84100; 84443; 84484; 85025; 85610; 85730; 86803; 87389; 93005; 96361; 96365; 96375; 99285; J0131; J1885; J3480; J7030; Q9967

== ENCOUNTER 2024-08-24 07:25 | Outpatient (CLI) | payer BC, OTHER, SELFPAY ==
--- NOTE | 2024-08-24 07:30 | US_ITS ---
FINAL REPORT TECHNIQUE: Sonographic images of the right upper quadrant were obtained. CLINICAL HISTORY: elevated liver enzymes, hx of elevated ETOH COMPARISON: None FINDINGS: PANCREAS: Unremarkable. LIVER: Mild fatty infiltration. No focal hepatic lesion. Portal vein is patent with normal directional flow. No intrahepatic biliary ductal dilatation. GALLBLADDER: No gallstones. No gallbladder wall thickening or pericholecystic fluid. COMMON DUCT: 5 mm. Normal for age. RIGHT KIDNEY: The right kidney measures 9.2 cm. There is no hydronephrosis, mass, or stone. FREE FLUID: None. IMPRESSION: Mild fatty liver Reviewed, Interpreted and Dictated by Felicia Dixon MD Transcribed by Keyona Mejia Authenticated and . [facility]
== END 2024-08-24 23:59 | disposition home or self-care (01) ==
LOC: RAD 07:26
PROVIDERS: PCP Nurse Practitioner Family; Visit Provider Nurse Practitioner Family
DX: K76.0 Fatty (change of) liver, not elsewhere classified (principal); F10.10 Alcohol abuse, uncomplicated
CPT/HCPCS: 76705

== ENCOUNTER 2024-10-19 11:18 | Outpatient (CLI) | payer BC, OTHER, SELFPAY ==
--- OUTSIDE RECORDS SUMMARY | 2024-10-19 11:33 | XMS_ITS | Clinical Summary ---
Author Organization [facility] Address [address] [place] [address] Care Team Providers Care Reconstructive Dentist Name Role Phone Kartik Dodson Primary Care Provider + Allergies No known active allergies Medications escitalopram (Lexapro) 10 MG tablet Take 1 tablet by mouth Daily. 30 tablet 1 08/07/2024 Active EVL-Aetn-MeDbxx- MgHydr-Simeth (First Mouthwash, Magic Mouthwash,) suspension Swish and spit 5 mL Every 6 (Six) Hours. 08/07/2024 Active Active Problems Problem Noted Date Diagnosed Date Anxiety 01/11/2016 Well female exam with routine gynecological exam 01/10/2016 Endometriosis 01/10/2016 Insomnia Overview (09/15/2015): sometime Resolved Problems Problem Noted Date Diagnosed Date Resolved Date Alcohol withdrawal 08/05/2024 Encounters Date Type Department Care Team Description 08/05/2024 10:00 PM EDT - 08/07/2024 11:27 AM EDT Hospital Encounter [facility] [address] [address] [place] [address] Maya Bennett MD Yates, Joseph R Jr., MD Bratton, Tracy M II, Alcohol withdrawal syndrome with complication (Primary Dx) Discharge Disposition: Home or Self Care 08/05/2024 Travel from Last 3 Months Family History Medical History Relation Name Comments Fibromyalgia Mother Hypertension Mother Rheum arthritis Mother Thyroid disease Mother Diabetes Other family Osteoporosis Other family Relation Name Status Comments Mother Other family Other Social History Tobacco Use Types Packs/Day Years Used Date Smoking Tobacco: Former Cigarettes Tobacco Cessation:Counseling Given: Not Answered Comments:quit 2 years ago Alcohol Use Standard Drinks/Week Comments Yes 0 (1 standard drink = 0.6 oz pur e alcohol) 1/2 a day [facility]a [facility] Utilities Answer Date Recorded In the past 12 months has th e electric, gas, oil, or water company threatened to shut off services in your home? No 08/06/2024 AUDIT-C Answer Date Recorded Q1: How often do you have a drink containing alcohol? 4 or more times a week 08/05/2024 Q2: How many drinks containi ng alcohol do you have on a typical day when you are drinking? 7 to 9 Q3: How often do you have si x or more drinks on one occasion? Daily or almost daily 08/05/2024 Overall Financial Resource Strain (CARDIA) Answe r Date Recorded How hard is it for you to pa y for the very basics like food, housing, medical care, and heating? Not very hard 08/06/2024 [facility] - Occupational Stress Questionnaire Answer Date Recorded Do you feel stress - tense, restless, nervous, or anxious, or unable to sleep at night because your mind is troubled all the time - these days? Only a little 08/06/2024 Exercise Vital Sign Answer Date Recorde d On average, how many days pe r week do you engage in moderate to strenuous exercise (like a brisk walk)? 5 days 08/06/2024 On average, how many minutes do you engage in exercise at this level? 30 min 08/06/2024 Hunger Vital Sign Answer Date Recorded Within the past 12 months, y ou worried that your food would run out before you got the money to buy more. Never true 08/07/19 25 Within the past 12 months, t he food you bought just didn't last and you didn't have money to get more. Never true 08/06/2024 PRAPARE - Transportation Answer Date Re corded In the past 12 months, has l ack of transportation kept you from medical appointments or from getting medications? No 07/23 In the past 12 months, has l ack of transportation kept you from meetings, work, or from getting things needed for daily living? No 08/06/2024 Abuse Screen Answer Date Recorded Feels Unsafe at Home or Work/School no 08/05/2024 Feels Threatened by Someone no 07/23 Does Anyone Try to Keep You From Having Contact with Others or Doing Things Outside Your Home? no 08/05/2024 Physical Signs of Abuse Present no 08/05/2024 Housing Stability Answer Date Recorded Current Living Arrangements home 07/23 Potentially Unsafe Housing Conditions none 08/06/2024 Family and Community Support Answer Hemanth e Recorded If for any reason you need h elp with day-to-day activities such as bathing, preparing meals, shopping, managing finances, etc., do you get the help you need? I get all the help I need 08/06/2024 How often do you feel lonely or isolated from those around you? Never 08/06/2024 Employment Answer Date Recorded Do you want help finding or keeping work or a job? I do not need or want help 08/06/2024 Disabilities Answer Date Recorded Difficulty Concentrating, Remembering or Making Decisions no 08/05/2024 Difficulty Managing Errands Independently no 08/05/2024 Education Answer Date Recorded Do you want help with school or training? For example, starting or completing job training or getting a high school diploma, GED or equivalent No 08/06/2024 Preferred Language Danish 08/06/2024 PHQ-2 Answer Date Recorded Patient Health Questionnaire-2 Score 0 08/06/2024 Comments No Sex and Gender Information Value Date Recorded Sex Assigned at Not on file Legal Sex Female 1:46 PM EDT Gender Identity Not on file Sexual Orientation Not on file Last Filed Vital Signs Vital Sign Reading Time Taken Comments Blood Pressure 124/84 08/07/2024 4:35 AM EDT Pulse 65 08/07/2024 4:35 AM EDT Temperature 36.8 C (98.3 F) 08/07/2024 8:54 AM EDT Respiratory Rate 18 08/07/2024 8:54 AM EDT Oxygen Saturation 94% 08/07/2024 4:35 AM EDT Inhaled Oxygen Concentration - - Weight 52.4 kg (115 lb 8 oz) 08/05/2024 10:08 PM EDT Height 160 cm (5' 3 ) 08/05/2024 10:08 PM EDT Body Mass Index 20.46 08/05/2024 10:08 PM EDT Plan of Treatment Health Maintenance Due Date Last Done Comments TDAP/TD VACCINES (1 - Tdap) 1994 MAMMOGRAM 2015 Annual Gynecologic Pelvic an d Breast Exam 01/11/2017 01/11/2016 ANNUAL PHYSICAL 01/22/2017 HEPATITIS C SCREENING 01/22/2017 COLOGUARD 2020 COLON CANCER SCREENING 5 YEA R SIGMOIDOSCOPY 2020 COLONOSCOPY 2020 03/25/2002 COLORECTAL CANCER SCREENING 2020 CT COLONOGRAPHY 2020 FECAL OCCULT BLOOD TEST 2020 FIT Testing (1 year) 2020 COVID-19 Vaccine ( - 2023-2 5 season) 2023 INFLUENZA VACCINE 12/23/2024 Pneumococcal Vaccine 0-49 Aged Out No longer eligible based on patient's age to complete this topic Procedures Procedure Name Priority Date/Time Associated Diagnosis Comments XR FOOT 3+ VW RIGHT Routine 08/06/2024 1 2:00 PM EDT SCAN SLIDE STAT 08/06/2024 12:41 AM EDT PROTIME-INR STAT 08/06/2024 12:41 AM EDT MAGNESIUM STAT 08/06/2024 12:41 AM EDT LACTIC ACID, PLASMA STAT 08/06/2024 1 2:41 AM EDT LIPASE STAT 08/06/2024 12:41 AM EDT CK STAT 08/06/2024 12:41 AM EDT COMPREHENSIVE METABOLIC PANEL STAT 08/06/2024 12:41 AM EDT CBC WITH AUTO DIFFERENTIAL STAT 08/06/2024 12:41 AM EDT URINALYSIS, MICROSCOPIC ONLY STAT 08/05/2024 11:07 PM EDT URINALYSIS W/ MICROSCOPIC IF INDICATED (NO CULTURE) STAT 08/05/2024 11:07 PM EDT POCT GLUCOSE FINGERSTICK Routine 08/05/2024 10:[address] OUTSIDE HEAD Routine 08/05/2024 12:05 AM EDT SCANNED - TELEMETRY 08/05/2024 SCANNED - IMAGING 08/05/2024 SCANNED - IMAGING 08/05/2024 CT OUTSIDE CHEST Routine 08/05/2024 12:0 0 AM EDT SCANNED - PAP SMEAR 01/11/2016 HM COLONOSCOPY Routine 03/25/2002 from Last 3 Months or Most Recently Relevant to Health Maintenance Results * XR Foot 3+ View Right (08/06/2024 12:00 PM EDT) Anatomical Region Laterality Modality Lower Extremities, Foot Right [facility] 08/06/2024 4:33 PM EDT Impressions 08/06/2024 4:34 PM EDT Impression: No acute osseous findings. Mild protuberant soft tissue at the dorsal midfoot. Correlate with physical exam. Correlate for any tibialis anterior tendinopathy. Electronically Signed: Wero Rosa MD 08/06/2024 4:34 PM EDT Workstation ID: [id number] Narrative 08/06/2024 4:34 PM EDT XR FOOT 3+ VW RIGHT Date of Exam: 08/06/2024 11:49 AM EDT Indication: fall, pain Comparison: None available. Findings: Chronic healed deformity of the distal fifth metatarsal shaft. No acute fracture or traumatic malalignment. Joint spaces are grossly preserved. Mild protuberant soft tissue at the dorsal midfoot. Procedure Note Wero Rosa MD - 08/06/2024 XR FOOT 3+ VW RIGHT Date of Exam: 08/06/2024 11:49 AM EDT Indication: fall, pain Comparison: None available. Findings: Chronic healed deformity of the distal fifth metatarsal shaft. No acutefracture or traumatic malalignment. Joint spaces are grossly preserved.Mild protuberant soft tissue at the dorsal midfoot. IMPRESSION: Impression: No acute osseous findings. Mild protuberant soft tissue at the dorsal midfoot. Correlate withphysical exam. Correlate for any tibialis anterior tendinopathy. Electronically Signed: Wero Rosa MD 08/06/2024 4:34 PM EDT Workstation ID: [id number] Renee Rosario II, DO IMG DIAGNOSTIC IMAGING OR DERABLES Final Result * Scan Slide (08/06/2024 12:41 AM EDT) RBC Morphology Normal Normal 08/06/2024 2:40 AM EDT [facility] WBC Morphology Normal Normal 08/06/2024 2:40 AM EDT [facility] Platelet Morphology Normal Normal 08/06/2024 2:40 AM EDT [facility] Blood Venipuncture / Unknown 08/06/2024 12:41 AM EDT 08/06/2024 1:12 AM EDT Selvin Hampton Jr., MD LAB BLOOD ORDERABLES Yumiko l Result [facility]
[address] [place] [address], * (ABNORMAL) CBC Auto Differential (08/06/2024 12:41 AM EDT) WBC 6.89 3.40 - 10.80 10*3/mm3 08/06/2024 2:40 AM EDT [facility] RBC 3.75(L) 3.77 - 5.28 10*6/mm3 08/06/2024 2:40 AM EDT [facility] Hemoglobin 12.9 12.0 - 15.9 g/dL 08/06/2024 2:40 AM EDT [facility] Hematocrit 38.9 34.0 - 46.6 % [facility]/06[facility]24 [facility] MCV 103.7(H) 79.0 - 97.0 fL 08/06/2024 2:40 AM [facility] MCH 34.4(H) 26.6 - 33.0 pg 08/06/2024 2:40 AM [facility] MCHC 33.2 31.5 - 35.7 g/dL 08/06/2024 2:40 AM [facility] RDW 12.3 12.3 - 15.4 % 08/06/2024 2:40 AM [facility] RDW-SD 46.8 37.0 - 54.0 fl 08/06/2024 2:40 AM [facility] MPV 10.7 6.0 - 12.0 fL 08/06/2024 2:40 AM [facility] Platelets 160 140 - 450 10*3/mm3 08/06/2024 2:40 AM [facility] Neutrophil % 79.3(H) 42.7 - 76.0 % 08/06/2024 2:40 AM [facility] Lymphocyte % 13.2(L) 19.6 - 45.3 % 08/06/2024 2:40 AM [facility] Monocyte % 7.0 5.0 - 12.0 % 08/06/2024 2:40 AM [facility] Eosinophil % 0.1(L) 0.3 - 6.2 % 08/06[facility]24 [facility] Basophil % 0.3 0.0 - 1.5 % 08/06/2024 2:40 AM [facility] Immature Grans % 0.1 0.0 - 0.5 % 08/06/2024 2:40 AM [facility] Neutrophils, Absolute 5.46 1.70 - 7.00 10*3/mm3 08/06/2024 2:40 AM [facility] Lymphocytes, Absolute 0.91 0.70 - 3.10 10*3/mm3 08/06/2024 2:40 AM EDT [facility] Monocytes, Absolute 0.48 0.10 - 0.90 10*3/mm3 08/06/2024 2:40 AM EDT [facility] Eosinophils, Absolute 0.01 0.00 - 0.40 10*3/mm3 08/06/2024 2:40 AM EDT [facility] Basophils, Absolute 0.02 0.00 - 0.20 10*3/mm3 08/06/2024 2:40 AM EDT [facility] Immature Grans, Absolute 0.01 0.00 - 0.05 10*3/mm3 08/06/2024 2:40 AM EDT [facility] nRBC 0.0 0.0 - 0.2 /100 WBC 08/06/2024 2:40 AM EDT [facility] Blood Venipuncture / Unknown 08/06/2024 12:41 AM EDT 08/06/2024 1:12 AM EDT Narrative [facility] - 08/06/2024 2:40 AM EDT Appended report. These results have been appended to a previously verified report. Selvin Hampton Jr., MD LAB BLOOD ORDERABLES Yumiko l Result [facility]
[address] [place] [address], * Protime-INR (08/06/2024 12:41 AM EDT) Protime 13.2 12.2 - 15.3 Seconds 08/06/2024 1:34 AM EDT [facility] INR 0.95 0.89 - 1.12 08/06/2024 1:34 AM EDT [facility] Blood Venipuncture / Unknown 08/06/2024 12:41 AM EDT 08/06/2024 1:12 AM EDT Selvin Hampton Jr., MD LAB BLOOD ORDERABLES Yumiko l Result Performing Organization Address [facility] de Phone Number [facility]
[address] [place] [address], * Magnesium (08/06/2024 12:41 AM EDT) Magnesium 2.0 1.6 - 2.6 mg/dL 08/06/2024 1:39 AM EDT [facility] Blood Venipuncture / Unknown 08/06/2024 12:41 AM EDT 08/06/2024 1:14 AM EDT Selvin Hampton Jr., MD LAB BLOOD ORDERABLES Yumiko l Result Performing Organization Address [facility] Phone Number [facility]
[address] [place] [address], * Lipase (08/06/2024 12:41 AM EDT) Lipase 45 13 - 60 U/L 08/06/2024 1:39 AM EDT [facility] Blood Venipuncture / Unknown 08/06/2024 12:41 AM EDT 08/06/2024 1:14 AM EDT Selvin Hampton Jr., MD LAB BLOOD ORDERABLES Yumiko l Result Performing Organization Address [facility] de Phone Number [facility]
[address] [place] [address], * Lactic Acid, Plasma (08/06/2024 12:41 AM EDT) Lactate 0.6 0.5 - 2.0 mmol/L 08/06/2024 1:35 AM EDT [facility] Comment:Falsely depressed re sults may occur on samples drawn from patients receiving N-Acetylcysteine (NAC) or Metamizole. Blood Venipuncture / Unknown 08/06/2024 12:41 AM EDT 08/06/2024 1:14 AM EDT us Selvin Hampton Jr., MD LAB BLOOD ORDERABLES Yumiko l Result Performing Organization Address [facility] Co de Phone Number [facility]
[address] [place] [address], * (ABNORMAL) CK (08/06/2024 12:41 AM EDT) Creatine Kinase 600(H) 20 - 180 U/L 08/06/2024 1:39 AM EDT [facility] Blood Venipuncture / Unknown 08/06/2024 12:41 AM EDT 08/06/2024 1:14 AM EDT Selvin Hampton Jr., MD LAB BLOOD ORDERABLES Yumiko l Result Performing Organization Address [facility] de Phone Number [facility]
[address] [place] [address], * (ABNORMAL) Comprehensive Metabolic Panel (08/06/2024 12:41 AM EDT) Glucose 135(H) 65 - 99 mg/dL 08/06/2024 1:39 AM EDT [facility] BUN 5(L) 6 - 20 mg/dL 08/06/2024 1:39 AM EDT [facility] Creatinine 0.68 0.57 - 1.00 mg/dL 08/06/2024 1:39 AM EDT [facility] Sodium 136 136 - 145 mmol/L 08/06/2024 1:39 AM EDT [facility] Potassium 4.2 3.5 - 5.2 mmol/L 08/06/2024 1:39 AM EDT [facility] Chloride 99 98 - 107 mmol/L 08/06/2024 1:39 AM [facility] CO2 23.0 22.0 - 29.0 mmol/L 08/06/2024 1:39 AM [facility] Calcium 9.1 8.6 - 10.5 mg/dL 08/06/2024 1:39 AM [facility] Total Protein 6.8 6.0 - 8.5 g/dL 08/06/2024 1:39 AM [facility] Albumin 4.6 3.5 - 5.2 g/dL 08/06/2024 1:39 AM [facility] ALT (SGPT) 68(H) 1 - 33 U/L 08/06/2024 1:39 AM [facility] AST (SGOT) 185(H) 1 - 32 U/L 08/06/2024 1:39 AM [facility] Alkaline Phosphatase 88 39 - 117 U/L 08/06/2024 1:39 AM [facility] Total Bilirubin 0.9 0.0 - 1.2 mg/dL 08/06/2024 1:39 AM [facility] Globulin 2.2 gm/dL 08/06/2024 1:39 AM [facility] Comment:Calculated Result A/G Ratio 2.1 g/dL 08/06/2024 1:39 AM [facility] BUN/Creatinine Ratio 7.4 7.0 - 25.0 08/06/2024 1:39 AM [facility] Anion Gap 14.0 5.0 - 15.0 mmol/L 08/06/2024 1:39 AM [facility] eGFR 106.9 >60.0 mL/min/1.7 3 08/06/2024 1:39 AM [facility] Blood Venipuncture / Unknown 08/06/2024 12:41 AM EDT 08/06/2024 1:14 AM T [facility] - 08/06/2024 1:39 AM EDT GFR Categories in Chronic Kidney Disease (CKD) GFR Category GFR (mL/min/1.73) Interpretation G1 90 or greater Normal or high (1) G2 60-89 Mild decrease (1) G3a 45-59 Mild to moderate decrease G3b 30-44 Moderate to severe decrease G4 15-29 Severe decrease G5 14 or less Kidney failure (1)In the absence of evidence of kidney disease, neither GFR category G1 or G2 fulfill the criteria for CKD. eGFR calculation 2020 CKD-EPI creatinine equation, which does not include race as a factor Selvin Hampton Jr., MD LAB BLOOD ORDERABLES Yumiko l Result Performing Organization Address [facility]/ZIP Co de Phone Number [facility]
[address] [place] [address], * (ABNORMAL) Urinalysis, Microscopic Only - Urine, Clean Catch (08/05/2024 11:07 PM EDT) RBC, UA 3-5(A) None Seen, 0-2 /HPF 08/05/2024 11:17 PM EDT [facility] WBC, UA 6-10(A) None Seen, 0-2 /HPF 08/05/2024 11:17 PM EDT [facility] Bacteria, UA None Seen None Seen, Trace /HPF 08/05/2024 11:17 PM EDT [facility] Squamous Epithelial Cells, UA 0-2 None Seen, 0-2 /HPF 08/05/2024 11:17 PM EDT [facility] Hyaline Casts, UA None Seen 0 - 6 /LPF 08/05/2024 11:17 PM EDT [facility] Methodology Automated Microscopy 08/05/2024 11:17 PM EDT [facility] Urine Urine specimen obtained by clean catch procedure / Unknown Collection / Unknown 08/05/2024 11:07 PM EDT 08/05/2024 11:11 PM EDT Selvin Hampton Jr., MD URINE ORDERABLES Final Re sult Performing Organization Address [facility]/ZIP Co de Phone Number [facility]
[address] [place] [address], [place] [phone] * (ABNORMAL) Urinalysis With Microscopic If Indicated (No Culture) - Urine, Clean Catch (08/05/2024 11:07 PM EDT) Color, UA Yellow Yellow, Straw 08/05/2024 11:17 PM EDT [facility] Appearance, UA Clear Clear 08/05/2024 11:17 PM EDT [facility] pH, UA 7.0 5.0 - 8.0 08/05/2024 11:17 PM EDT [facility] Specific [place], UA 1.013 1.001 - 1.030 08/05/2024 11:17 PM EDT [facility] Glucose, UA Negative Negative 08/05/2024 11:17 PM EDT [facility] Ketones, UA 15 mg/dL (1+)(A) Negative 08/05/2024 11:17 PM EDT [facility] Bilirubin, UA Negative Negative 08/05/2024 11:17 PM EDT [facility] Blood, UA Small (1+)(A) Negative 08/05/2024 11:17 PM EDT [facility] Protein, UA Negative Negative 08/05/2024 11:17 PM EDT [facility] Leuk Esterase, UA Trace(A) Negative 08/05/2024 11:17 PM EDT [facility] Nitrite, UA Negative Negative 08/05/2024 11:17 PM EDT [facility] Urobilinogen, UA 0.2 E.U./dL 0.2 - 1.0 E.U./dL 08/05/2024 11:17 PM EDT [facility] Urine Urine specimen obtained by clean catch procedure / Unknown Collection / Unknown 08/05/2024 11:07 PM EDT 08/05/2024 11:11 PM EDT Selvin Hampton Jr., MD URINE ORDERABLES Final Re sult Performing Organization Address City/[facility]/ZIP Co de Phone Number [facility]
[address] [place] [address], * POC Glucose Once (08/05/2024 10:27 PM EDT) Glucose 83 70 - 130 mg/dL 08/05/2024 10:28 PM EDT [facility] Blood 08/05/2024 10:2 7 PM EDT 08/05/2024 10:28 PM EDT us Maya Bennett MD POINT OF CARE TEST ORDERABLES Final Result Performing Organization Address [facility] Co de Phone Number [facility]
[address] [place] [address], * CT Outside Head (08/05/2024 12:05 AM EDT) Narrative SYSTEMGENERATED, DOCUMENTATION - 08/06/2024 12:45 AM EDT This procedure was auto-finalized with no dictation required. us [employer] Outside Films IMG CT ORDERABLES Final Re sult * CT Outside Chest (08/05/2024 12:00 AM EDT) Narrative SYSTEMGENERATED, DOCUMENTATION - 08/06/2024 12:44 AM EDT This procedure was auto-finalized with no dictation required. us [employer] Outside Films IMG CT ORDERABLES Final Re sult * Telemetry Scan (08/05/2024) us [facility] New Onbase ECG ORDERABLES Final Result * IMAGING SCANNED (08/05/2024) Only the most recent of2 resultswithin the time period is included. Anatomical Region Laterality Modality Radiographic Laverne ging [facility] New Onbase IMG DIAGNOSTIC IMAGING ORDERA BLES Final Result * SCANNED - PAP SMEAR (01/11/2016) Milena Bailey [employer]ED [employer] SUPERVISOR CHART REVIEW TABS Final R esult * COLONOSCOPY (03/25/2002) Colonoscopy last colonoscopy Historical Provider HEALTH MAINTENANCE Final Result from Last 3 Months or Most Recently Relevant to Health Maintenance Insurance [employer] [address] Advance Directives * CPR (Attempt to Resuscitate) (Latest Code Status on File) Date Activated Date Inactivated Comments 08/05/2024 10:12 PM 08/07/2024 1:27 PM Question Answer Comments Code Status (Patient has no pulse and is not breathing): CPR (Attempt to Resuscitate) Medical Interventions (Patie nt has pulse or is breathing): Full Support Care Teams Reconstructive Dentist Relationship Specialty Start Date End Date Kartik Dodson DO [address] [place] [id number] PCP - General Internal Medicine 08/06/24
[2024-10-19 12:11] LABS: Alanine Aminotransferase 76 U/L (12-78); Albumin Level 5.1 g/dl (3.5-5.0); Albumin/Globulin Ratio 2.0 (1.1-1.8); Alkaline Phosphatase 83 U/L (38-126); Anion Gap 13.6 mEq/L (5-15); Aspartate Amino Transferase 115 U/L (14-36); Bilirubin,Total 1.0 mg/dl (0.2-1.3); Blood Urea Nitrogen 18 mg/dl (7-17); Calcium 10.3 mg/dl (8.4-10.2); Carbon Dioxide 29 mmol/L (22.0-30.0); Chloride 95 mmol/L (98-107); Creatinine,Serum 0.70 mg/dl (0.52-1.04); Estimated Glomerular Filt Rate 89 ml/min (>60); GFR (African American) 108 ML/MIN (>60); Globulin 2.5 g/dL (1.3-3.2); Glucose 108 mg/dl (74-100); Magnesium 2.0 mg/dl (1.6-2.3); Potassium 3.6 mmoL/L (3.5-5.1); Sodium 134 mmol/L (136-145); Total Protein,Serum 7.6 g/dl (6.3-8.2)
[2024-10-19 12:59] LABS: Vitamin B12 511 pg/mL (239-931)
== END 2024-10-19 23:59 | disposition home or self-care (01) ==
LOC: LAB 11:19
PROVIDERS: PCP Nurse Practitioner Family; Visit Provider Nurse Practitioner Family
DX: F10.10 Alcohol abuse, uncomplicated (principal)
CPT/HCPCS: 36415; 80053; 82607; 83735; 84207; 84425

== ENCOUNTER 2025-01-22 11:35 | Outpatient (CLI) | payer BC, OTHER, SELFPAY ==
--- OUTSIDE RECORDS SUMMARY | 2025-01-22 11:37 | XMS_ITS | Clinical Summary ---
Author Organization [facility] Address [address] [place] [address] Care Team Providers Care Umbrella Frame Maker Name Role Phone Kartik Dodson Primary Care Provider + Allergies No known active allergies Medications escitalopram (Lexapro) 10 MG tablet Take 1 tablet by mouth Daily. 30 tablet 1 08/07/2024 Active OAP-Yfyw-PzKrnl- MgHydr-Simeth (First Mouthwash, Magic Mouthwash,) suspension Swish and spit 5 mL Every 6 (Six) Hours. 08/07/2024 Active Active Problems Problem Noted Date Diagnosed Date Anxiety 01/11/2016 Well female exam with routine gynecological exam 01/10/2016 Endometriosis 01/10/2016 Insomnia Overview (09/15/2015): sometime Resolved Problems Problem Noted Date Diagnosed Date Resolved Date Alcohol withdrawal 08/05/2024 Family History Medical History Relation Name Comments [...] oz pur e alcohol) 1/[address] [facility] [employer] Answer Date Recorded In the past 12 months has [employer], gas, oil, or water [employer] threatened to shut off services in your [...] care, and heating? Not very hard 08/06/2024 [facility] - Occupational [...] GED or equivalent No 08/06/2024 Preferred Language Greenlandic 08/06/2024 PHQ-2 Answer Date Recorded Patient Health [...] TEST 2020 FIT Testing (1 year) 2020 INFLUENZA VACCINE 10/23/2024 Pneumococcal Vaccine 0-49 Aged Out No longer eligible based on patient's age to complete this topic Procedures Procedure Name Priority Date/Time Associated Diagnosis Comments SCANNED - PAP SMEAR 01/11/2016 COLONOSCOPY Routine 03/25/2002 from Last 3 Months or Most Recently Relevant to Health Maintenance Results * SCANNED - PAP SMEAR (01/11/2016) Milena Santillan Page EVENT ORGANIZER CHART REVIEW TABS Final R esult * COLONOSCOPY (03/25/2002) Colonoscopy last colonoscopy Historical Provider MD HEALTH MAINTENANCE Final Result from Last 3 Months or Most Recently Relevant to Health Maintenance Insurance [place] [id number] [facility] Advance Directives * CPR (Attempt to Resuscitate) (Latest Code Status on File) Date Activated Date Inactivated Comments 08/05/2024 10:12 PM 08/07/2024 1:27 PM Question Answer Comments Code Status (Patient has no pulse and is not breathing): CPR (Attempt to Resuscitate) Medical Interventions (Patie nt has pulse or is breathing): Full Support Care Teams Umbrella Frame Maker Relationship Specialty Start Date End Date Kartik Dodson DO [address] [place] [id number] PCP - General Internal Medicine 08/06/24
--- NOTE | 2025-01-22 11:47 | XR_ITS ---
FINAL REPORT TECHNIQUE: 2 views left scapula CLINICAL HISTORY: seizure, injury COMPARISON: None FINDINGS: LEFT SCAPULA: Two images of the left scapula were obtained. There is no evidence of fracture or dislocation. The joint spaces are intact. There is no soft tissue abnormality identified. IMPRESSION: No acute bony abnormality. Reviewed, Interpreted and Dictated by Anoop Mckenna MD Transcribed by Siomara Strong Authenticated and [facility]
[2025-01-22 11:58] LABS: Hematocrit 39.4 % (37.0-47.0); Hemoglobin 13.5 g/dL (12.2-16.2); Immature Granulocytes % 0 %; Mean Corpuscular HGB Conc 34.3 g/dL (31.8-35.4); Mean Corpuscular Hemoglobin 35.4 pg (27.0-31.2); Mean Corpuscular Volume 103.4 fl (81-99); Nucleated Red Blood Cells % 0 %; Platelet Count 111 K/mm3 (142-424); Red Blood Count 3.81 M/mm3 (4.20-5.40); Red Cell Distribution Width-SD 61.1 fL; White Blood Count 3.3 K/mm3 (4.8-10.8)
[2025-01-22 12:06] LABS: Ammonia < 9 umol/L (9-30)
[2025-01-22 14:34] LABS: Alanine Aminotransferase 81 U/L (12-78); Albumin Level 4.1 g/dl (3.5-5.0); Albumin/Globulin Ratio 1.1 (1.1-1.8); Alkaline Phosphatase 93 U/L (38-126); Anion Gap 12.6 mEq/L (5-15); Aspartate Amino Transferase 258 U/L (14-36); Bilirubin,Total 1.0 mg/dl (0.2-1.3); Blood Urea Nitrogen 8 mg/dl (7-17); Calcium 9.5 mg/dl (8.4-10.2); Carbon Dioxide 29 mmol/L (22.0-30.0); Chloride 97 mmol/L (98-107); Creatinine,Serum 0.70 mg/dl (0.52-1.04); Estimated Glomerular Filt Rate 89 ml/min (>60); GFR (African American) 108 ML/MIN (>60); Globulin 3.9 g/dL (1.3-3.2); Glucose 110 mg/dl (74-100); Magnesium 1.6 mg/dl (1.6-2.3); Potassium 3.6 mmoL/L (3.5-5.1); Sodium 135 mmol/L (136-145); Total Protein,Serum 8.0 g/dl (6.3-8.2)
== END 2025-01-22 23:59 | disposition home or self-care (01) ==
LOC: LAB 11:35
PROVIDERS: PCP Nurse Practitioner Family; Visit Provider Nurse Practitioner Family
DX: F10.10 Alcohol abuse, uncomplicated (principal); R56.9 Unspecified convulsions; S40.012A Contusion of left shoulder, initial encounter
CPT/HCPCS: 36415; 73010; 80053; 80320; 82140; 83735; 84425; 85025

== ENCOUNTER 2025-03-01 15:21 | Emergency (ER) | payer BC, OTHER, SELFPAY ==
[2025-03-01 15:23] VITALS: PULSE 102; RESP 18; TEMP 36.6; O2SAT 100; BMI 22.4
--- NOTE | 2025-03-01 16:10 | ED_ITS ---
<Statement entered by Gris Blunt DO - 03/01/25 17:30> I was consulted by the YA, and we discussed the complexity of problems being addressed. I approve the treatment and management plan for this patient's care in the emergency department, thus performing a substantial portion of the medical decision making. Gris Blunt DO Discharge Plan Disposition Patient Disposition: Home, Self-Care Condition: Good Prescriptions Prescriptions: No Action escitalopram oxalate 20 mg tablet 20 mg PO DAILY Qty: 30 2RF losartan 50 mg tablet 50 mg PO DAILY Qty: 30 2RF baclofen 20 mg tablet 20 mg PO TID PRN (Reason: alcohol withdrawal) Qty: 90 0RF hydroxyzine pamoate 25 mg capsule See Rx Instructions PO HS PRN (Reason: anxiety or sleep) 30 Days Qty: 60 0RF Rx Instructions: one to two tablet orally at bedtime nightly PRN; vitamin B complex Tablet 1 tab PO DAILY shbwrbuz-mjy-hkiqc acid-biotin 200-300 mcg tablet,chewable 2 tab PO DAILY metoprolol succinate 50 mg tablet extended release 24 hr 50 mg PO DAILY Qty: 30 2RF Referrals Follow up/Referrals: Julia Braswell APRN [Primary Care Provider, Medical] - See instructions Activity Restrictions/Add. Instructions Additional Instructions/Restrictions: You were seen today in the emergency department for repair of your surgical wound on your lower back after it reopened today. 5 sutures were placed in the wound to repair where it had reopened. The procedure went well with no complications. You should use soap and water to clean the area 2-3 times daily and apply antibiotic ointment such as Neosporin or bacitracin for the first several days. Please avoid baths and swimming pools; showers are fine. The sutures should stay in for 10 to 12 days. You may have the removed to your primary care office, urgent care, or your surgeons clinic; you do not need to return to the emergency department for the sutures to be removed. Follow-up with your primary care provider and surgical clinic as directed. Return to the emergency department if you have any worsening of current complaints such as significant bleeding from the area, swelling, discharge from the wound, or any other emergent medical complaint or concern. Clinical Impressions Clinical Impression: Postoperative wound closure planning, Surgical wound dehiscence Instructions Patient Instructions: How to Care for a Surgical Wound, DI for Wound Dehiscence, DI for Laceration Repair Print Language Print Language: Finnish Discharge ED Provider: Gris Blunt General Adult HPI General Chief complaint: Wound/Laceration Stated complaint: Surgery site on back has busted open Time Seen by Provider: 03/01/25 15:59 Mode of Arrival: Ambulatory Source of Information: Patient Description of Symptoms (Recalled from ER Triage Doc. by RN): pt presents to the ED with back pain and wound check on pt's back. pt reports 2 1/2 weeks ago she had surgery to remove a mole from her back. pt states today she seen her surgeon and had her stitches removed. pt reports on the way home she bent over in the truck when she noticed a pop and warm drainage coming from her incision. pt placed bandaids on the incision. Denies chest pain and shortness of breath. No recent fevers. History of Present Illness HPI narrative: Patient is a pleasant 49-year-old female who presents to the emergency department after a surgical wound reopened on her lower back. Patient had a mole removed 2.5 weeks prior and was seen today by her surgeon for removal of her stitches. The surgeon removed stitches from the entire suture line and stated that she had healed well. Her surgeon told her to avoid bending over while the area continues to heal, but she forgot to not bend over and pick reopened the wound. Stated that she noticed bleeding and her placed a large Band-Aid over the area at home prior to them coming into the ED. Patient denies any other complications from wound; denies any fever, swelling, redness, or any other sign of infection. Related Data Home Medications ?Medication ?Instructions ?Recorded ?Confirmed multivit with minerals-folic acid 2 tab PO DAILY 08/1801/22/25 200 mcg-biotin 300 mcg chew tablet vitamin B complex 1 tab PO DAILY 08/18/2412/25 Previous Rx's ?Medication ?Instructions ?Recorded escitalopram oxalate 20 mg tablet 20 mg PO DAILY #30 t abs 09/09/24 baclofen 20 mg tablet 20 mg PO TID PRN alcohol withdrawal #90 tabs losartan 50 mg tablet 50 mg PO DAILY #30 tabs 09/23 08/16 hydroxyzine pamoate 25 mg capsule See Rx Instructions PO HS PRN 10/23/24 anxiety or sleep 30 days #60 caps metoprolol succinate 50 mg 50 mg PO DAILY #30 tabs tablet,extended release 24 hr Allergies Allergy/AdvReac Type Severity Reaction Status Date / Time No Known Allergies Allergy Verified 01/22/25 10:53 [facility] Disclaimer: The information contained in this section may have been updated after the patient was seen, as this information can be updated by other users. Medical History Depression Surgical History History of tonsillectomy H/O total hysterectomy Family History Family/Other Diabetes Mother Thyroid disorder Hypertension Rheumatoid arthritis Social History Smoking Status: Former smoker tobacco type: cigarettes alcohol intake: former year quit: 2024 substance use type: denies use current occupational status: employed Travel in the last 8 weeks?: None Have you lived/traveled outside US in past 30 days?: No Contact w/someone who lives/traveled outside US past 30 days?: No Exposure to someone with infectious disease in past 14 days?: No Do you have a fever (greater than 100.4 F or 38 C)?: No Have you tested positive for COVID-19?: No Exposed to someone with COVID-19 in past 14 days?: No Do you have a sore throat?: No Do you have a cough?: No Do you have any weakness?: No Do you have any diarrhea?: No Are you experiencing any unusual bleeding?: No Do you have any muscle aches/pain?: No Do you have any abdominal pain?: No Are you experiencing loss of taste or smell?: No Other Medical History Have you received the Pneumonia Vaccine: No ROS Obtained: Yes Systems reviewed as appropriate & no additional complaints except as documented Physical Exam General General appearance: alert and in no apparent distress Head Head exam: atraumatic and normocephalic Eye Eye exam: Present normal appearance, PERRL and EOMI ENT ENT exam: Present normal exam Neck Neck exam: Present normal inspection and trachea midline Chest Chest inspection: Present normal inspection and symmetric chest wall rise; Absent tenderness Respiratory Respiratory exam: Present normal lung sounds bilaterally; Absent respiratory distress Cardiovascular Cardiovascular exam: Present regular rate and normal rhythm Abdominal Exam Abdominal exam: Present soft; Absent distention or tenderness Extremities Exam Extremities exam: Present normal inspection and full ROM; Absent tenderness Back Exam Back exam: Present other (2.5 cm laceration noted along suture line from mole removal.) Neurological Exam Neurological exam: Present alert and oriented X3 Psychiatric Psychiatric exam: Present normal affect and normal mood Skin Skin exam: Present warm, dry and normal color Medical Decision Making Medical Records Screening: Per USPSTF and CDC recommendations, given the prevalence of disease in our region, it is our hospital?s policy to screen for HIV and viral Hepatitis for all patients aged 18 and over and those with ongoing risk factors. Judah Inquiry Pt receiving controlled substance: No Vital Signs: 03/01/25 15:23 Temperature 97.9 F Temperature Source Temporal Artery Scan Pulse Rate [Right] 102 H Respiratory Rate 18 Blood Pressure Source [Right Arm] Automatic Cuff Blood Pressure Position [Right Arm] Supine 02 Sat by Pulse Oximetry 100 Oxygen Delivery Method Room Air Orders (Tests/Meds): ORDERS Category Date Time Status HIV Combo Stat Lab 03/01/25 15:39 Ordered Hepatitis C Ab Qual. W/ RFX Stat Lab 03/01/25 15:39 Ordered Medical Decision Narrative: In summary patient is a pleasant 49-year-old female who presents to the emergency department for evaluation of surgical wound dehiscence. Patient is hemodynamically stable upon arrival, afebrile. Patient is noted to have a 2.5 cm dehiscence along a horizontal suture line in her lumbar area. The area to the right of the dehiscence appears to be healing very well and the entire area is without redness, swelling, discharge, or any other sign of infection. Differential diagnosis includes wound dehiscence, seroma, abscess. Clinical exam completed at bedside and discussion was had with patient about suture repair of the dehiscence area. Patient verbalized agreement to plan and the wound was repaired with 5 sutures. See procedure note for full details. Patient tolerated the procedure very well and was instructed to follow-up with her primary care provider and surgeon. She verbalized understanding of and was amenable to this plan. Patient is alert and oriented, nontoxic and afebrile, with GCS 15; she is stable for discharge at this time. Return precautions discussed and discharge instructions. Imaging, labs, and EKG considered but not clinically indicated at this time due to this patient's complaint and presentation. Procedures Risk/Benefits of Procedure(s) Were Explained: Yes Laceration Surgical wound dehiscence : Site: back Size (cm): 2.5 Description: clean Depth: simple, single layer Local Anesthetic: lidocaine 1% and with epi Amount of anesthesia used (mL): 5.0 Skin layer closed with: nylon Size (cm): 4-0 Number of sutures: 5 Technique: simple, interrupted Critical Care Critical Care Time Critical Care Time: No
[2025-03-01 17:02] VITALS: BP 124/80; PULSE 80; RESP 20; TEMP 36.7; O2SAT 98
== END 2025-03-01 17:06 | disposition home or self-care (01) ==
PROVIDERS: Emergency Provider Student in an Organized Health Care Education/Training Program; PCP Nurse Practitioner Family
DX: T81.31XA Disruption of external operation (surgical) wound, not elsewhere classified, initial encounter (principal); X58.XXXA Exposure to other specified factors, initial encounter; I10 Essential (primary) hypertension; M06.9 Rheumatoid arthritis, unspecified; Z87.891 Personal history of nicotine dependence; Z79.899 Other long term (current) drug therapy
CPT/HCPCS: 12001; 99282; J2004